=== PATIENT | male | born 1960 | race Caucasian/White ===

== ENCOUNTER 2018-11-24 12:12 | Emergency (ER) | payer OTHER ==
--- NOTE | 2018-11-24 12:53 | ED ---
Psychiatric Complaint - HPI Summary HPI Summary: This pt is a 58 y/o male [facility] c/o depression and intentional overdose today. Pt reports his about 4 years ago of lung cancer. He states he didn't leave his house for about a year but then eventually got a job. Pt notes he has been very depressed since then. Pt notes that he hasn't used Xanax since September 10 but yesterday he went to buy some more from "a girl." He reports he ingested about 25 Xanax pills of 2 mg each since last night. Additionally he states taking 4 Klonopin pills of 2 mg each since last night. Pt denies intent of hurting himself by taking the pills, however he notes after taking the pills "I was going to hang myself." He states he took these pills to "give me the courage to do it." Denies alcohol use. - History Of Current Complaint Chief Complaint: EDMentalHealth Time Seen by Provider: 11/24/18 12:17 Hx Obtained From: Patient Onset/Duration: Lasting Days, Still Present Timing: Days Severity Currently: Moderate Character: Depressed Aggravating Factor(s): Drug Use Alleviating Factor(s): Nothing Has Suicidal: Reports: Thoughts, With A Plan Has Homicidal: Denies: Thoughts, With A Plan - Allergies/Home Medications Allergies/Adverse Reactions: Allergies Allergy/AdvReac Type Severity Reaction Status Date / Time No Known Allergies Allergy Verified 11/24/18 12:25 Home Medications: Home Medications Buprenorphine HCl/Naloxone HCl [Buprenorp-Nalox 8-2 mg Sl Film] 1 film PO BID [History Confirmed 11/24/18] Gabapentin 400 mg PO TID 11/24/18 [History Confirmed 11/24/18] clonazePAM [Clonazepam] 2.5 mg PO DAILY 11/24/18 [History Confirmed 11/24/18] PMH/Surg Hx/FS Hx/Imm Hx Cardiovascular History: Denies: Hx Coronary Artery Disease Psychiatric History: Reports: Hx Anxiety, Hx Depression Infectious Disease History: No Infectious Disease History: Denies: Traveled Outside the [place] in Last 30 Days - Family History Family History: FHx of depression and mood disorder. - Social History Alcohol Use: None Substance Use Type: Reports: Other Substance Use Comment - Amount & Last Used: Xanax, Klonopin Smoking Status (MU): Former Smoker Review of Systems Negative: Fever, Chills Cardiovascular: Negative Respiratory: Negative Gastrointestinal: Negative Psychological: Other - POS: SI thoughts and plan Positive: Depressed All Other Systems Reviewed And Are Negative: Yes Physical Exam - Summary Physical Exam Summary: VITAL SIGNS: Reviewed. GENERAL: Patient is a well-developed and nourished male. Patient is not in any acute respiratory distress. HEAD AND FACE: No signs of trauma. No ecchymosis, hematomas or skull depressions. No sinus tenderness. EYES: PERRLA, EOMI x 2, No injected conjunctiva, no nystagmus. EARS: Hearing grossly intact. Ear canals and tympanic membranes are within normal limits. MOUTH: Oropharynx within normal limits. NECK: Supple, trachea is midline, no adenopathy, no JVD, no carotid bruit, no c- spine tenderness, neck with full ROM. CHEST: Symmetric, no tenderness at palpation LUNGS: Clear to auscultation bilaterally. No wheezing or crackles. CVS: Regular rate and rhythm, S1 and S2 present, no murmurs or gallops appreciated. ABDOMEN: Soft, non-tender. No signs of distention. No rebound no guarding, and no masses palpated. Bowel sounds are normal. EXTREMITIES: FROM in all major joints, no edema, no cyanosis or clubbing. NEURO: Alert and oriented x 3. No acute neurological deficits. Speech is normal and follows commands. SKIN: Dry and warm Triage Information Reviewed: Yes Vital Signs On Initial Exam: Initial Vitals Temp Pulse Resp BP Pulse Ox 98.0 F 82 16 141/88 99 11/24/18 12:13 11/24/18 12:13 11/24/18 12:13 11/24/18 12:13 11/24/18 12:13 Vital Signs Reviewed: Yes Diagnostics - Vital Signs Vital Signs Temp Pulse Resp BP Pulse Ox 11/24/18 12:13 98.0 F 82 16 141/88 99 - Laboratory Result Diagrams: 11/24/18 13:05 11/24/18 13:05 Lab Statement: Any lab studies that have been ordered have been reviewed, and results considered in the medical decision making process. - EKG 13:18 Cardiac Rate: NL - 77 bpm EKG Rhythm: Sinus Rhythm Summary of EKG Findings: No ST elevations. Q wave in leads III and aVF. Course/Dx - Course Course Of Treatment: Poison control was contacted and they report patient needs to be monitored for 6 hours after he came to the ED. Assessment/Plan: This pt is a 58 y/o male presenting to [facility] c/o depression and intentional overdose today. Pt reports his about 4 years ago of lung cancer. He states he didn't leave his house for about a year but then eventually got a job. Pt notes he has been very depressed since then. Pt notes that he hasn't used Xanax since September 10 but yesterday he went to buy some more from "a girl." He reports he ingested about 25 Xanax pills of 2 mg each since last night. Additionally he states taking 4 Klonopin pills of 2 mg each since last night. Pt denies intent of hurting himself by taking the pills, however he notes after taking the pills "I was going to hang myself." He states he took these pills to "give me the courage to do it." Denies alcohol use. Poison control recommended for the patient to be observed for approximately 6 hours. PMH: Depression and anxiety. The patient was medically clear after 6 hours. Blood work w/o a significant abnormality. He is medically cleared. He is awaiting for a MHE. Patient is hemodynamically stable and A+O x 3. Patient had a mental health evaluation and his case was reviewed by Dr. Paraad, psychiatrist. Dr. Parada cleared the pt for discharge. Pt will be discharged home with dx mood disorder related to substance abuse. - Differential Dx/Clinical Impression Provider Diagnosis: Substance induced mood disorder - Physician Notifications Discussed Care Of Patient With: Stephan Salazar Time Discussed With Above Provider: 13:29 Instructed by Provider To: Other - Discussed the case with Dr. Salazar, lightning protection installer, who reports EKG shows no ST elevations, only LVH. - Critical Care Time Critical Care Time: 30-74 min Discharge - Sign-Out/Discharge Documenting (check all that apply): Patient Departure - Discharge home Patient Received Moderate/Deep Sedation with Procedure: No - Discharge Plan Condition: Stable Disposition: HOME Patient Education Materials: Benzodiazepine Abuse (ED), Polysubstance Abuse (ED ) Referrals: Rui Ulloa DO [Primary Care Provider] - 3 Days Additional Instructions: Follow up with your primary care provider in 3 days. RETURN TO THE ER FOR WORSENING OR CHANGING SYMPTOMS. - Billing Disposition and Condition Condition: STABLE Disposition: Home - Attestation Statements Document Initiated by Sirena: Yes Documenting Scribe: Aubrie Lopez Provider For Whom Sirena is Documenting (Include Credential): Mata Haywood MD Scribe Attestation: Aubrie Yates, scribed for Mata Haywood MD on 11/25/18 at 1835. Scribe Documentation Reviewed: Yes Provider Attestation: The documentation as recorded by the Aubrie cooper accurately reflects the service I personally performed and the decisions made by me, Mata Haywood MD Status of Scribe Document: Viewed
[2018-11-24 13:11] LABS: ABS Basophils 0.1 10^3/ul (0-0.2); ABS Eosinophils 0.5 10^3/ul (0-0.6); ABS Lymphocytes 1.9 10^3/ul (1.0-4.8); ABS Monocytes 0.6 10^3/ul (0-0.8); ABS Neutrophils 4.6 10^3/ul (1.5-7.7); Eosinophil % 6.8 %; Hematocrit 46 % (42-52); Hemoglobin 15.9 g/dL (14.0-18.0); Lymphocyte % 24.4 %; Mean Corpuscular HGB Conc 34 g/dL (31-36); Mean Corpuscular Hemoglobin 32 pg (27-31); Mean Corpuscular Volume 92 fL (80-94); Mean Platelet Volume 7.7 fL (7.4-10.4); Nucleated Red Blood Cells % 0.1; Platelet Count 225 10^3/uL (150-450); Red Blood Count 5.04 10^6 /uL (4.18-5.48); Red Cell Distribution Width 14 % (10.5-15); White Blood Count 7.7 10^3/uL (3.5-10.8)
[2018-11-24 13:30] LABS: ALT 35 U/L (7-52); Albumin 4.4 g/dL (3.2-5.2); Albumin/Globulin Ratio 1.5 (1-3); Alkaline Phosphatase 72 U/L (34-104); BUN/Creatinine Ratio 14.5 (8-20); Blood Urea Nitrogen 11 mg/dL (6-24); CO2 Carbon Dioxide 27 mmol/L (22-32); Calcium 8.8 mg/dL (8.6-10.3); Chloride 102 mmol/L (101-111); EGFR African American 127.9 (>60); EGFR Non-African American 105.7 (>60); Glucose 120 mg/dL (70-100); Sodium 136 mmol/L (135-145); Total Protein 7.4 g/dL (6.4-8.9)
[2018-11-24 14:13] LABS: Acetaminophen < 15 mcg/mL; Alcohol < 10 mg/dL (<10); Salicylate < 2.50 mg/dL (<30)
[2018-11-24 14:27] LABS: Anion Gap 7 mmol/L (2-11); Potassium 4.4 mmol/L (3.5-5.0)
[2018-11-24 14:30] LABS: AST 27 U/L (13-39)
[2018-11-24 14:30] LABS: Urine Appearance Clear; Urine Bilirubin Negative (Negative); Urine Blood Negative (Negative); Urine Color Yellow; Urine Glucose Negative (Negative); Urine Ketones Negative (Negative); Urine Nitrite Negative (Negative); Urine Protein Negative (Negative); Urine Specific Gravity 1.012 (1.010-1.030); Urine Urobilinogen Negative (Negative)
[2018-11-24 14:50] LABS: Urine Benzodiazepine Screen Presumptive Positive (None Detect); Urine Opiates Screen None Detected (None Detect)
[2018-11-24 21:27] VITALS: BP 166/79
== END 2018-11-24 21:25 | disposition home or self-care (01) ==
LOC: ED 12:12
DX: F19.94 Other psychoactive substance use, unspecified with psychoactive substance-induced mood disorder (principal); R94.31 Abnormal electrocardiogram [ECG] [EKG]; F41.9 Anxiety disorder, unspecified; F32.9 Major depressive disorder, single episode, unspecified; Z87.891 Personal history of nicotine dependence
CPT/HCPCS: 36415; 80053; 80307; 80320; 80329; 81003; 83605; 85025; 93005; 99285; G0480